=== PATIENT | male | born 1995 | race Caucasian/White ===

== ENCOUNTER 2023-08-16 16:42 | Emergency (ER) | payer OTHER ==
[~2023-08-16] VITALS: Ht 175.3 cm; Wt 78.0 kg
[2023-08-16] MEDS: HYDROCODONE/APAP 5/325MG TABLET PO ONE (17:00)
[2023-08-16] MEDS ORDERED: HYDROCODONE/APAP 5/325MG TABLET ONE (17:02)
[2023-08-16] MEDS ORDERED: HYDR-4303 PO (18:59)
[2023-08-16 19:12] VITALS: BP 134/74; TEMP 97.6; O2SAT 100
== END 2023-08-16 19:13 | disposition home or self-care (01) ==
LOC: ER 16:42
DX: S42.141A Displaced fracture of glenoid cavity of scapula, right shoulder, initial encounter for closed fracture (principal); S42.021A Displaced fracture of shaft of right clavicle, initial encounter for closed fracture; V98.8XXA Other specified transport accidents, initial encounter; Y93.89 Activity, other specified; Y92.89 Other specified places as the place of occurrence of the external cause; Y99.8 Other external cause status
CPT/HCPCS: 73030-TC